=== PATIENT | male | born 1985 | race Hispanic/Latino ===

== ENCOUNTER 2018-10-25 01:05 | Emergency (ER) | payer OTHER ==
[2018-10-25] MEDS ORDERED: KETOROLAC 30 MG/ML INJ ONE (02:05)
--- NOTE | 2018-10-25 02:30 | ER ---
Nurse's Notes [facility] Name: German Benjamin Age: 33 yrs Sex: Male : 1985 Arrival Date: 10/25/2018 Time: 01:07 Bed 15 Private MD: Reinier Martel Diagnosis: Muscle spasm Presentation: 10/25 02:06 Presenting complaint: Patient states: He started having numbness of the right arm, that ea has come and gone for several days. Reports he has been seen for it before. Transition of care: patient was not received from another setting of care. Onset of symptoms was October 25, 2018. Risk Assessment: Do you want to hurt yourself or someone else? Patient reports no desire to harm self or others. Initial Sepsis Screen: Does the patient meet any 2 criteria? No. Patient's initial sepsis screen is negative. Does the patient have a suspected source of infection? No. Patient's initial sepsis screen is negative. Care prior to arrival: None. 02:06 Method Of Arrival: Ambulatory ea 02:06 Acuity: ABDELRAHMAN 4 ea Triage Assessment: 02:08 General: Appears in no apparent distress. Behavior is calm, cooperative, appropriate ea for age. Pain: Denies pain. EENT: No signs and/or symptoms were reported regarding the EENT system. Neuro: Level of Consciousness is awake, alert, obeys commands, Oriented to person, place, time, situation. Cardiovascular: Heart tones S1 S2 present Patient's skin is warm and dry. Respiratory: Airway is patent Respiratory effort is even, unlabored, Respiratory pattern is regular, symmetrical, Breath sounds are clear bilaterally. GI: Abdomen is non-distended. Derm: Skin is pink, warm \T\ dry. Historical: - Allergies: 02:08 No Known Allergies; ea - Home Meds: 02:08 Naproxen Oral [Active]; ea - PMHx: 02:08 Hypertension; ea - PSHx: 02:08 left knee surgery; ea - Immunization history:: Adult Immunizations up to date. - Social history:: Smoking status: Patient/guardian denies using tobacco, Patient/guardian denies using alcohol, street drugs, The patient lives with family. - Ebola Screening: : No symptoms or risks identified at this time. - Family history:: not pertinent. - Hospitalizations: : No recent hospitalization is reported. Screenin:10 Abuse screen: Denies threats or abuse. Nutritional screening: No deficits noted. ea Tuberculosis screening: No symptoms or risk factors identified. Fall Risk None identified. Assessment: 02:45 Reassessment: Patient and/or family updated on plan of care and expected duration. Pain ea level reassessed. Patient is alert, oriented x 3, equal unlabored respirations, skin warm/dry/pink. Discharge instructions given to patient, verbalized the understanding of instructions Patient states feeling better. Patient states symptoms have improved. Vital Signs: 02:09 BP 150 / 87; Pulse 66; Resp 17; Temp 98.2; Pulse Ox 97% on R/A; Weight 118.84 kg; ea Height 5 ft. 11 in. (180.34 cm); 02:40 BP 128 / 70; Pulse 60; Resp 18; Pulse Ox 98% ; ea 02:09 Body Mass Index 36.54 (118.84 kg, 180.34 cm) ea ED Course: 01:07 Patient arrived in ED. am2 01:07 Reinier Martel MD is Private Physician. am2 01:44 Zoe Wolfe MD is Attending Physician. ma2 01:55 Kaur Rivera RN is Primary Nurse. ea 02:07 Triage completed. ea 02:10 Arm band placed on right wrist. Patient placed in an exam room, on a stretcher, on ea pulse oximetry. 02:11 Patient has correct armband on for positive identification. Bed in low position. Call ea light in reach. Side rails up X2. 02:46 No provider procedures requiring assistance completed. IV discontinued, intact, ea bleeding controlled, No redness/swelling at site. Pressure dressing applied. Administered Medications: 02:06 Drug: TORadol 60 mg Route: IM; Site: right gluteus; ea 02:40 Follow up: Response: No adverse reaction ea Outcome: 02:30 Discharge ordered by . ma2 02:46 Discharged to home ambulatory, with significant other. ea 02:46 Condition: improved 02:46 Instructed on discharge instructions, follow up and referral plans. medication usage, Demonstrated understanding of instructions, follow-up care, medications, Prescriptions given X 2. 02:47 Patient left the ED. ea Signatures: Karen Alejandre am2 Rivera, Kaur, RN RN ea Alzahri, Mohammad, MD MD ma2 Corrections: (The following items were deleted from the chart) 02:47 02:46 BP 128 / 70; Pulse 60bpm; Resp 18bpm; Pulse Ox 98%; ea ea
--- NOTE | 2018-10-25 02:30 | EDPHYS ---
Physician Documentation [facility] Name: German Benjamin Age: 33 yrs Sex: Male : 1985 Arrival Date: 10/25/2018 Time: 01:07 Bed 15 Private MD: Reinier Martel ED Physician Zoe Wolfe HPI: 10/25 02:30 This 33 yrs old Male presents to ER via Ambulatory with complaints of Numbness ma2 Of Arm. 02:27 The patient or guardian complains of pain. The complaints affect the left bicep. Onset: ma2 The symptoms/episode began/occurred suddenly, 3 hour(s) ago. Associated signs and symptoms: Pertinent negatives: decreased range of motion, erythema, fever, nausea. Severity of symptoms: At their worst the symptoms were moderate, in the emergency department the symptoms are unchanged. The patient has experienced similar episodes in the past. 02:27 Modifying factors: The symptoms are alleviated by nothing. the symptoms are aggravated ma2 by movement. Historical: - Allergies: 02:08 No Known Allergies; ea - Home Meds: 02:08 Naproxen Oral [Active]; ea - PMHx: 02:08 Hypertension; ea - PSHx: 02:08 left knee surgery; ea - Immunization history:: Adult Immunizations up to date. - Social history:: Smoking status: Patient/guardian denies using tobacco, Patient/guardian denies using alcohol, street drugs, The patient lives with family. - Ebola Screening: : No symptoms or risks identified at this time. - Family history:: not pertinent. - Hospitalizations: : No recent hospitalization is reported. ROS: 02:27 Constitutional: Negative for fever, chills, and weight loss, Cardiovascular: Negative ma2 for chest pain, palpitations, and edema, Respiratory: Negative for shortness of breath, cough, wheezing, and pleuritic chest pain, Abdomen/GI: Negative for abdominal pain, nausea, diarrhea, and constipation. 02:27 MS/extremity: Positive for tenderness, Negative for bite, decreased range of motion, ecchymosis, erythema, pain. 02:27 All other systems are negative. 02:27 Neuro: Negative for headache, weakness, numbness, tingling, and seizure, Psych: ma2 Negative for depression, anxiety, suicide ideation, homicidal ideation, and hallucinations, Allergy/Immunology: Negative for hives, rash, and allergies. Exam: 02:27 Constitutional: This is a well developed, well nourished patient who is awake, alert, ma2 and in no acute distress. Chest/axilla: Normal chest wall appearance and motion. Nontender with no deformity. No lesions are appreciated. Cardiovascular: Regular rate and rhythm with a normal S1 and S2. No gallops, murmurs, or rubs. Normal PMI, no JVD. No pulse deficits. Respiratory: Lungs have equal breath sounds bilaterally, clear to auscultation and percussion. No rales, rhonchi or wheezes noted. No increased work of breathing, no retractions or nasal flaring. Abdomen/GI: Soft, non-tender, with normal bowel sounds. No distension or tympany. No guarding or rebound. No evidence of tenderness throughout. 02:27 Musculoskeletal/extremity: Extremities: noted in the left arm: pain, tenderness, Circulation is intact in all extremities. Vital Signs: 02:09 BP 150 / 87; Pulse 66; Resp 17; Temp 98.2; Pulse Ox 97% on R/A; Weight 118.84 kg; ea Height 5 ft. 11 in. (180.34 cm); 02:40 BP 128 / 70; Pulse 60; Resp 18; Pulse Ox 98% ; ea 02:09 Body Mass Index 36.54 (118.84 kg, 180.34 cm) ea MDM: 01:45 Patient medically screened. ma2 02:27 Differential diagnosis: contusion, abrasion, tendonitis. Data reviewed: vital signs, sc2 nurses notes. Counseling: I had a detailed discussion with the patient and/or guardian regarding: the historical points, exam findings, and any diagnostic results supporting the discharge/admit diagnosis, the presence of at least one elevated blood pressure reading (>120/80) during this emergency department visit, the need for outpatient follow up. Medical screen evaluation completed. EMTALA emergency medical condition absent. Response to treatment: the patient's symptoms have resolved after treatment. Administered Medications: 02:06 Drug: TORadol 60 mg Route: IM; Site: right gluteus; ea 02:40 Follow up: Response: No adverse reaction ea Disposition: 10/25/18 02:30 Discharged to Home. Impression: Muscle spasm. - Condition is Stable. - Prescriptions for Tylenol- Codeine #3 300-30 mg Oral Tablet - take 2 tablet by ORAL route every 6 hours As needed; 30 tablet. Cyclobenzaprine 10 mg Oral Tablet - take 1 tablet by ORAL route every 8 hours As needed; 30 tablet. - Medication Reconciliation Form, Thank You Letter, Antibiotic Education, Prescription Opioid Use form. - Follow up: Private Physician; When: Tomorrow; Reason: Continuance of care. Signatures: Kaur Rivera RN RN ea Alzahri, Mohammad, MD MD ma2 Corrections: (The following items were deleted from the chart) 02:35 02:30 10/25/2018 02:30 Discharged to Home. Impression: [place] hemorrhagic fever; Muscle ma2 spasm. Condition is Stable. Forms are Medication Reconciliation Form, Thank You Letter, Antibiotic Education, Prescription Opioid Use. Follow up: Private Physician; When: Tomorrow; Reason: Continuance of care. ma2 02:47 02:35 10/25/2018 02:30 Discharged to Home. Impression: Muscle spasm. Condition is ea Stable. Prescriptions for Tylenol-Codeine #3 300-30 mg Oral Tablet - take 2 tablet by ORAL route every 6 hours As needed; 30 tablet, Cyclobenzaprine 10 mg Oral Tablet - take 1 tablet by ORAL route every 8 hours As needed; 30 tablet. and Forms are Medication Reconciliation Form, Thank You Letter, Antibiotic Education, Prescription Opioid Use. Follow up: Private Physician; When: Tomorrow; Reason: Continuance of care. ma2
== END 2018-10-25 02:47 | disposition home or self-care (01) ==
LOC: ER 01:05
DX: M62.838 Other muscle spasm (principal)
CPT/HCPCS: 96372; 99283

== ENCOUNTER 2019-01-26 01:44 | Emergency (ER) | payer OTHER ==
[2019-01-26 02:51] LABS: Urine Blood 1+ (NEG); Urine Glucose NEGATIVE (NEG); Urine Protein 1+ (NEG); Urine Specific Gravity >1.030 (1.005-1.030); Urine pH 5.5 (5.0-7.0)
[2019-01-26 03:00] LABS: Barbiturates NEGATIVE (NEGATIVE); Benzodiazepines NEGATIVE (NEGATIVE); Cocaine NEGATIVE (NEGATIVE); METHAMPHETAM NEGATIVE (NEGATIVE); Methadone NEGATIVE (NEGATIVE); Opiates NEGATIVE (NEGATIVE); Phencyclidine NEGATIVE (NEGATIVE); THC Cannibis NEGATIVE (NEGATIVE)
[2019-01-26 03:13] LABS: Absolute Lymphocytes (CBC) 1.5 K/uL (0.7-4.9); Absolute Monocytes 0.7 K/uL (0.1-1.3); Absolute Neutrophil 7.7 K/uL (1.8-8.0); Basophils % 0.5 % (0-1.3); Eosinophils % 0.2 % (0-4.4); Hematocrit 46.9 % (39.6-49.0); Lymphocytes % 15.1 % (15.3-44.8); MPV 8.9 fL (7.6-11.3); Monocytes % 6.8 % (3.3-12.3); RBC Red Blood Cell Count 5.48 M/uL (4.33-5.43)
[2019-01-26 03:14] LABS: Protime INR 1.08
[2019-01-26 03:27] LABS: ALT/SGPT 40 U/L (12-78); AST/SGOT 18 U/L (15-37); Albumin 4.6 g/dL (3.4-5.0); Alkaline Phosphatase 85 U/L (45-117); BUN Blood Urea Nitrogen 11 mg/dL (7-18); Bicarbonate 27 mmol/L (21-32); Bilirubin Direct 0.2 mg/dL (0-0.2); Bilirubin Total 0.6 mg/dL (0.2-1.0); Glucose Level 96 mg/dL (74-106); Potassium 3.5 mmol/L (3.5-5.1); Protein, Total 8.4 g/dL (6.4-8.2); Sodium Level 141 mmol/L (136-145)
--- NOTE | 2019-01-26 06:55 | EKG ---
Test Date: 2019-01-26 Test Time: 02:01:31 Electrical Line Splicer: ARLEY MEASUREMENT RESULTS: Intervals: Rate: 66 AR: 192 QRSD: 90 QT: 382 QTc: 400 [place]: P: 48 AR: 192 QRS: 22 T: 15 INTERPRETIVE STATEMENTS: Normal sinus rhythm Nonspecific ST and T wave abnormality Abnormal ECG Compared to ECG 02/19/2018 23:10:28 Sinus bradycardia no longer present Left ventricular hypertrophy no longer present ST (T wave) deviation still present Electronically Signed On 01-26-19 06:54:31 CRANE OPERATOR by Yuri Lainez
--- NOTE | 2019-01-26 08:11 | ER ---
Nurse's Notes [facility] Name: German Benjamin Age: 33 yrs Sex: Male : 1985 Arrival Date: 01/26/2019 Time: 01:45 Bed 17 Private MD: Diagnosis: Suicidal ideations Presentation: 01/26 01:49 Presenting complaint: EMS states: had an argument with his 3 hours ago. after that rr5 he started banging his head on the wall. tied shoe lace on his neck and tied in the door knob. According to patient he have done this before long time ago. Lizette MUHAMMAD on the scene. Transition of care: patient was not received from another setting of care. Onset of symptoms was January 26, 2019. Risk Assessment: Do you want to hurt yourself or someone else? Patient reports desire/thoughts of hurting themselves or someone else. Provider notified. Initial Sepsis Screen: Does the patient meet any 2 criteria? No. Patient's initial sepsis screen is negative. Does the patient have a suspected source of infection? No. Patient's initial sepsis screen is negative. Note mild redness on forehead noted. negative ramos for strangulation. Care prior to arrival: None. 01:49 Method Of Arrival: EMS: [facility] rr5 01:49 Acuity: ABDELRAHMAN 2 rr5 Historical: - Allergies: 01:58 No Known Allergies; rr5 - PMHx: 01:58 Hypertension; rr5 - PSHx: 01:58 Knee surgery; rr5 - Immunization history:: Adult Immunizations not up to date. - Social history:: Smoking status: Patient/guardian denies using tobacco, Patient/guardian denies using alcohol, street drugs. - Ebola Screening: : Patient negative for fever greater than or equal to 101.5 degrees Fahrenheit, and additional compatible Ebola Virus Disease symptoms Patient denies exposure to infectious person Patient denies travel to an Ebola-affected area in the 21 days before illness onset. Screenin:10 Abuse screen: Denies threats or abuse. Denies injuries from another. Nutritional rr5 screening: No deficits noted. Tuberculosis screening: No symptoms or risk factors identified. Fall Risk None identified. Assessment: 02:00 General: Appears in no apparent distress. comfortable, Behavior is calm, cooperative, rr5 appropriate for age, teary eyes. Pain: Complains of pain in forehead Pain does not radiate. Pain currently is 5 out of 10 on a pain scale. Quality of pain is described as aching, Pain began suddenly, Is intermittent. Neuro: Level of Consciousness is awake, alert, obeys commands, Oriented to person, place, time, situation, Appropriate for age. Cardiovascular: Capillary refill < 3 seconds Patient's skin is warm and dry. Respiratory: Airway is patent Respiratory effort is even, unlabored, Respiratory pattern is regular, symmetrical. GI: No signs and/or symptoms were reported involving the gastrointestinal system. : No signs and/or symptoms were reported regarding the genitourinary system. EENT: No signs and/or symptoms were reported regarding the EENT system. Derm: Skin temperature is warm mild redness forehead area. Musculoskeletal: Capillary refill < 3 seconds, Range of motion:. 03:14 Reassessment: Patient appears in no apparent distress at this time. Patient is alert, rr5 oriented x 3, equal unlabored respirations, skin warm/dry/pink. mental health deputy came and assess the patient. 04:13 Reassessment: Patient appears in no apparent distress at this time. Patient is alert, rr5 oriented x 3, equal unlabored respirations, skin warm/dry/pink. asleep comfortably on bed. no complaints made. 04:42 Reassessment: secretary specialist staff forwarded the information to [facility]. awaiting for rr5 response. 05:30 Reassessment: Patient appears in no apparent distress at this time. Patient is alert, rr5 oriented x 3, equal unlabored respirations, skin warm/dry/pink. no complaints made, calm, cooperative, watching TV comfortably. 06:20 Reassessment: Patient appears in no apparent distress at this time. Patient is alert, rr5 oriented x 3, equal unlabored respirations, skin warm/dry/pink. [facility] staff came and assessing the patient. 07:00 General: Appears in no apparent distress. comfortable, Behavior is calm, cooperative, hj appropriate for age. Pain: Denies pain. Neuro: Level of Consciousness is awake, alert, obeys commands, Oriented to person, place, time, situation, Appropriate for age. Cardiovascular: Capillary refill < 3 seconds Patient's skin is warm and dry. Respiratory: Airway is patent Respiratory effort is even, unlabored, Respiratory pattern is regular, symmetrical. GI: No signs and/or symptoms were reported involving the gastrointestinal system. : No signs and/or symptoms were reported regarding the genitourinary system. EENT: No signs and/or symptoms were reported regarding the EENT system. Derm: No signs and/or symptoms reported regarding the dermatologic system. Musculoskeletal: No signs and/or symptoms reported regarding the musculoskeletal system. 07:14 Reassessment: Patient is alert, oriented x 3, equal unlabored respirations, skin pc1 warm/dry/pink. Patient denies pain at this time. Reassessment: Patient appears in no apparent distress at this time. 08:16 Reassessment: gave report to Prem Hernadez. pc1 08:53 Reassessment: brother/ family member in room;. hj 10:10 Reassessment: Pt signed consent form for transfer. pc1 10:40 Reassessment: Patient and/or family updated on plan of care and expected duration. Pain hj level reassessed. Patient is alert, oriented x 3, equal unlabored respirations, skin warm/dry/pink. Psych: 02:00 Subjective: Patient's mood is sad. Objective: Patient is cooperative, Speech is normal, rr5 Affect is appropriate, Patient has mutilated themselves by banging his head on the wall and tied shoe lace on his neck then tied on a door knob. 02:00 Interventions: Removed personal items and placed in bag. Patient placed in hospital rr5 gown. Searched person for dangerous items. Urine collected and sent for urine drug test. Belonging list filled out. Suicide Risk Assessment: Sad Person Scale: Sex of patient: Male: Score 1 point. Age of patient: Score 1 point if patient 15-34. Depression: Score 1 point if signs of depression are present. Previous Attempt: Score 1 point if patient has previously attempted suicide. Substance Abuse: Score 0 point if patient does not abuse alcohol or drugs. Rational Thinking: Score 0 point if patient has rational thinking. Social Support: Score 1 point if social support is lacking and/or unavailable. Organized Plan: Score 0 if patient did not have an organized plan in place. Relationship: Score 0 point if patient has a spouse or domestic partner. Chronic Sickness: Score 0 point if patient does not have a chronic illness, debilitating, or severe disorder. TOTAL POINTS: If total points are 5-6, proposed clinical action is to strongly consider hospitalization, depending upon confidence in the follow-up arrangement. Implement suicide precautions. Safety Checks: Personal items have been removed. Door is open. sitter at bedside. Pt denies substance abuse. Commitment: Patient will be a voluntary commitment. Vital Signs: 01:50 BP 150 / 85; Pulse 89; Resp 17; Temp 98.4; Pulse Ox 99% ; Weight 116.12 kg; Height 5 rr5 ft. 11 in. (180.34 cm); 02:25 BP 127 / 78; Pulse 75; Resp 16; Pulse Ox 99% ; rr5 06:06 BP 139 / 88; Pulse 82; Resp 16; Pulse Ox 97% on R/A; mt 09:13 BP 129 / 63; Pulse 82; Resp 17; Temp 98.7; Pulse Ox 98% on R/A; Pain 0/10; mh5 01:50 Body Mass Index 35.70 (116.12 kg, 180.34 cm) rr5 ED Course: 01:45 Patient arrived in ED. ds1 01:45 Harsh Conte MD is Attending Physician. tw4 01:45 Safety checks: Items removed: yes. Door open/sign placed on door: yes. Family/friend mt present: no. Sitter present: Yes. 01:48 Khoa Solares, JANINA is Primary Nurse. rr5 01:57 Triage completed. rr5 01:58 Initial lab(s) drawn, by me, sent to lab. mt 02:00 Safety Checks: Personal items have been removed. The door is open or patient has been rr5 placed in a hallway bed/chair. Sitter present at this time. 02:00 Arm band placed on. rr5 02:00 EKG completed in triage. Results shown to MD. rr5 02:00 Safety checks: Items removed: yes. Door open/sign placed on door: yes. Family/friend mt present: no. Sitter present: Yes. 02:01 Patient has correct armband on for positive identification. Placed in gown. Bed in low rr5 position. 02:05 Valuables inventory done. Locked in safe. See valuables checklist. rr5 02:15 Safety checks: Items removed: yes. Door open/sign placed on door: yes. Family/friend mt present: no. Sitter present: Yes. 02:30 Safety checks: Items removed: yes. Door open/sign placed on door: yes. Family/friend mt present: no. Sitter present: Yes. 02:45 Safety checks: Items removed: yes. Door open/sign placed on door: yes. Family/friend mt present: no. Sitter present: Yes. 02:50 Inserted saline lock: 20 gauge in right forearm, using aseptic technique. Blood rr5 collected. 03:00 Safety checks: Items removed: yes. Door open/sign placed on door: yes. Family/friend mt present: no. Sitter present: Yes. 03:15 Safety checks: Items removed: yes. Door open/sign placed on door: yes. Family/friend mt present: no. Sitter present: Yes. 03:30 Safety checks: Items removed: yes. Door open/sign placed on door: yes. Family/friend mt present: no. Sitter present: Yes. 03:45 Safety checks: Items removed: yes. Door open/sign placed on door: yes. Family/friend mt present: no. Sitter present: Yes. 04:00 Safety checks: Items removed: yes. Door open/sign placed on door: yes. Family/friend mt present: no. Sitter present: Yes. 04:15 Safety checks: Items removed: yes. Door open/sign placed on door: yes. Family/friend mt present: no. Sitter present: Yes. 04:30 Safety checks: Items removed: yes. Door open/sign placed on door: yes. Family/friend mt present: no. Sitter present: Yes. 04:45 Safety checks: Items removed: yes. Door open/sign placed on door: yes. Family/friend mt present: no. Sitter present: Yes. 05:00 Safety checks: Items removed: yes. Door open/sign placed on door: yes. Family/friend mt present: no. Sitter present: Yes. 05:15 Safety checks: Items removed: yes. Door open/sign placed on door: yes. Family/friend mt present: no. Sitter present: Yes. 05:30 Safety checks: Items removed: yes. Door open/sign placed on door: yes. Family/friend mt present: no. Sitter present: Yes. 05:45 Safety checks: Items removed: yes. Door open/sign placed on door: yes. Family/friend mt present: no. Sitter present: Yes. 06:00 Safety checks: Items removed: yes. Door open/sign placed on door: yes. Family/friend mt present: no. Sitter present: Yes. 07:00 Safety checks: Items removed: yes. Door open/sign placed on door: yes. Family/friend mh5 present: no. Sitter present: Yes. 07:08 Attending Physician role handed off by Harsh Conte MD rn 07:08 Juan Tom MD is Attending Physician. rn 07:15 Safety checks: Items removed: yes. Door open/sign placed on door: yes. Family/friend mh5 present: no. Sitter present: Yes. Safety checks: Items removed: yes. 07:30 Safety checks: Items removed: yes. Door open/sign placed on door: yes. Family/friend mh5 present: no. Sitter present: Yes. 07:45 Safety checks: Items removed: yes. Door open/sign placed on door: yes. Family/friend mh5 present: no. Sitter present: Yes. 08:00 Safety checks: Items removed: yes. Door open/sign placed on door: yes. Family/friend mh5 present: no. Sitter present: Yes. 08:15 Safety checks: Items removed: yes. Door open/sign placed on door: yes. Family/friend mh5 present: no. Sitter present: Yes. Diet: Patient given a regular meal tray. 08:30 Safety checks: Items removed: yes. Door open/sign placed on door: yes. Family/friend mh5 present: yes. Family/friends encouraged to stay with patient. Sitter present: Yes. 08:45 Safety checks: Items removed: yes. Door open/sign placed on door: yes. Family/friend mh5 present: yes. Family/friends encouraged to stay with patient. Sitter present: Yes. 09:00 Safety checks: Items removed: yes. Door open/sign placed on door: yes. Family/friend mh5 present: yes. Family/friends encouraged to stay with patient. Sitter present: Yes. 09:15 Safety checks: Items removed: yes. Door open/sign placed on door: yes. Family/friend mh5 present: yes. Sitter present: Yes. 09:30 Safety checks: Items removed: yes. Door open/sign placed on door: yes. Family/friend mh5 present: no. Sitter present: Yes. 09:43 Safety checks: Items removed: Family/friend present: Other: PATENTS MOTHER AND BROTHER mh5 ARE IN THE ROOM VISITING WITH PATEINT. 09:45 Safety checks: Items removed: yes. Door open/sign placed on door: yes. Family/friend mh5 present: yes. Family/friends encouraged to stay with patient. Sitter present: Yes. 09:51 faxed chart to [facility], was told by Anai that they have no beds at this time.bd 10:00 Safety checks: Items removed: yes. Door open/sign placed on door: yes. Family/friend mh5 present: yes. Family/friends encouraged to stay with patient. Sitter present: Yes. 10:15 Safety checks: Items removed: yes. Door open/sign placed on door: yes. Family/friend mh5 present: yes. Family/friends encouraged to stay with patient. Sitter present: Yes. 10:30 Safety checks: Items removed: yes. Door open/sign placed on door: yes. Family/friend mh5 present: yes. Family/friends encouraged to stay with patient. Sitter present: Yes. 10:39 No provider procedures requiring assistance completed. Patient transferred, IV remains hj in place. IV discontinued, intact, bleeding controlled, No redness/swelling at site. Pressure dressing applied. 10:41 Safety checks: Items removed: yes. Door open/sign placed on door: yes. Family/friend mh5 present: yes. Family/friends encouraged to stay with patient. Other: ALL FAM LY IN ROOM TO SEE PATEIN OFF . EMS HERE TO TAKE PATEINT Sitter present: Yes. Administered Medications: No medications were administered Outcome: 08:09 ER care complete, transfer ordered by . rn 10:39 Transferred by ground EMS Transfer form completed. X-rays sent w/ patient. Note: Stephanie Hernadez 10:39 Condition: stable 10:39 Instructed on the need for transfer, Demonstrated understanding of instructions. 10:41 Patient left the ED. jade Signatures: Dayan Glass Demi ds1 Juan Tom MD MD rn Joaquin, Henry, RN RN hj Martinez, Maria 5 Beverly Silveira [place] Harsh Conte MD MD 4 Solares, Khoa, RN RN rr5 Ramirez, Aristeo pc1
--- NOTE | 2019-01-26 08:11 | EDPHYS ---
Physician Documentation [facility] Name: German Benjamin Age: 33 yrs Sex: Male : 1985 Arrival Date: 01/26/2019 Time: 01:45 Bed 17 Private MD: ED Physician Juan Tom HPI: 01/26 03:25 This 33 yrs old Male presents to ER via EMS with complaints of Suicidal tw4 Ideation. 03:25 The patient presents to the emergency department with anxiety. Onset: The tw4 symptoms/episode began/occurred today. Past psychiatric history: Prior diagnosis: no previous psychiatric diagnosis known. Severity of symptoms: At their worst the symptoms were moderate. The patient has not experienced similar symptoms in the past. 03:25 Associated signs and symptoms: Pertinent positives; anxiety, depression, suicide tw4 ideation. Historical: - Allergies: 01:58 No Known Allergies; rr5 - PMHx: 01:58 Hypertension; rr5 - PSHx: 01:58 Knee surgery; rr5 - Immunization history:: Adult Immunizations not up to date. - Social history:: Smoking status: Patient/guardian denies using tobacco, Patient/guardian denies using alcohol, street drugs. - Ebola Screening: : Patient negative for fever greater than or equal to 101.5 degrees Fahrenheit, and additional compatible Ebola Virus Disease symptoms Patient denies exposure to infectious person Patient denies travel to an Ebola-affected area in the 21 days before illness onset. ROS: 03:25 Constitutional: Negative for fever, chills, and weight loss, Eyes: Negative for injury, tw4 pain, redness, and discharge, Cardiovascular: Negative for chest pain, palpitations, and edema, Respiratory: Negative for shortness of breath, cough, wheezing, and pleuritic chest pain, Abdomen/GI: Negative for abdominal pain, nausea, vomiting, diarrhea, and constipation, Back: Negative for injury and pain, MS/Extremity: Negative for injury and deformity. 03:25 Psych: Positive for anxiety, depression. 03:25 Psych: Positive for suicide gesture, suicidal ideation. tw4 Exam: 03:25 Constitutional: This is a well developed, well nourished patient who is awake, alert, tw4 and in no acute distress. Head/Face: Normocephalic, atraumatic. Chest/axilla: Normal chest wall appearance and motion. Nontender with no deformity. No lesions are appreciated. Cardiovascular: Regular rate and rhythm with a normal S1 and S2. No gallops, murmurs, or rubs. Normal PMI, no JVD. No pulse deficits. Respiratory: Lungs have equal breath sounds bilaterally, clear to auscultation and percussion. No rales, rhonchi or wheezes noted. No increased work of breathing, no retractions or nasal flaring. Abdomen/GI: Soft, non-tender, with normal bowel sounds. No distension or tympany. No guarding or rebound. No evidence of tenderness throughout. Back: No spinal tenderness. No costovertebral tenderness. Full range of motion. MS/ Extremity: Pulses equal, no cyanosis. Neurovascular intact. Full, normal range of motion. Neuro: Awake and alert, GCS 15, oriented to person, place, time, and situation. Cranial nerves II-XII grossly intact. Motor strength 5/5 in all extremities. Sensory grossly intact. Cerebellar exam normal. Normal gait. 03:25 Psych: Behavior/mood is pleasant, anxious, depressed, Affect is flat, Oriented to person, place, time, Patient has no thoughts/intents to harm self or others. Vital Signs: 01:50 BP 150 / 85; Pulse 89; Resp 17; Temp 98.4; Pulse Ox 99% ; Weight 116.12 kg; Height 5 rr5 ft. 11 in. (180.34 cm); 02:25 BP 127 / 78; Pulse 75; Resp 16; Pulse Ox 99% ; rr5 06:06 BP 139 / 88; Pulse 82; Resp 16; Pulse Ox 97% on R/A; mt 09:13 BP 129 / 63; Pulse 82; Resp 17; Temp 98.7; Pulse Ox 98% on R/A; Pain 0/10; mh5 01:50 Body Mass Index 35.70 (116.12 kg, 180.34 cm) rr5 MDM: 02:16 Patient medically screened. tw4 07:08 ED course: Patient calm, medically stable, being evaluated by mental health.. rn 07:15 Differential diagnosis: depression, suicidal attempt/ideation. Data reviewed: vital rn signs, nurses notes, lab test result(s), and as a result, I will admit patient. Counseling: I had a detailed discussion with the patient and/or guardian regarding: the historical points, exam findings, and any diagnostic results supporting the discharge/admit diagnosis, lab results, the need to transfer to another facility, [facility] does not immediately have the required specialist. ED course: Mental health recommends transfer for psychiatric evaluation, awaiting transfer. . 01/26 01:46 Order name: Acetaminophen; Complete Time: 07:09 01/26 01:46 Order name: Basic Metabolic Panel; Complete Time: 07:09 01/26 01:46 Order name: CBC with Diff; Complete Time: 07:09 01/26 01:46 Order name: ETOH Level; Complete Time: 07:09 01/26 01:46 Order name: Hepatic Function; Complete Time: 07:09 01/26 01:46 Order name: PT-INR; Complete Time: 07:09 01/26 01:46 Order name: Ptt, Activated; Complete Time: 07:09 01/26 01:46 Order name: Salicylate; Complete Time: 07:09 01/26 01:46 Order name: Urine Drug Screen; Complete Time: 07:09 01/26 01:46 Order name: EKG; Complete Time: 01:48 01/26 01:46 Order name: EKG - Nurse/Tech; Complete Time: 02:20 01/26 02:07 Order name: Urine Dipstick--Ancillary (enter results); Complete Time: 07:09 [facility] 01/26 07:08 Order name: Diet Regular; Complete Time: 07:08 01/26 10:02 Order name: Diet Regular; Complete Time: 10:03 [facility] 01/26 01:46 Order name: IV Saline Lock; Complete Time: 02:57 01/26 01:46 Order name: Labs collected and sent; Complete Time: :58 01/26 01:46 Order name: Urine Dipstick-Ancillary (obtain specimen); Complete Time: :58 Administered Medications: No medications were administered Disposition: 01/26/19 08:09 Transfer ordered to Psych Facility. Diagnosis is Suicidal ideations. - Reason for transfer: Higher level of care. - Accepting physician is . - Condition is Stable. - Problem is new. - Symptoms have improved. Signatures: Dispatcher [employer] EDMS Juan Tom MD MD rn Manjit, Delfino, RN RN hj Dg, Harsh, MD MD tw4 Khoa Solares RN RN rr5 Corrections: (The following items were deleted from the chart) 03:26 03:25 Associated signs and symptoms: The patient has no apparent associated signs or tw4 symptoms, tw4 10:41 08:09 01/26/2019 08:09 Transfer ordered to [facility]. Diagnosis is Suicidal hj ideations. Reason for transfer: Higher level of care. Accepting physician is . Condition is Stable. Problem is new. Symptoms have improved. rn
== END 2019-01-26 10:41 ==
LOC: ER 01:44
DX: R45.851 Suicidal ideations (principal); F41.9 Anxiety disorder, unspecified; F32.9 Major depressive disorder, single episode, unspecified; I10 Essential (primary) hypertension
CPT/HCPCS: 36415; 80048; 80076; 80307; 80320; 80329; 81003; 85025; 85610; 85730; 93005; 99285

== ENCOUNTER 2025-03-16 11:22 | Emergency (ER) | payer BC, OTHER, SELFPAY ==
[2025-03-16 12:05] LABS: Absolute Lymphocytes (CBC) 1.4 K/uL (0.7-4.9); Absolute Monocytes 0.5 K/uL (0.1-1.3); Absolute Neutrophil 5.7 K/uL (1.8-8.0); Basophils % 0.6 % (0-1.3); Eosinophils % 0.5 % (0-4.4); Hematocrit 42.3 % (39.6-49.0); Hemoglobin 14.8 g/dL (13.6-17.9); Lymphocytes % 18.7 % (15.3-44.8); MCH 29.8 pg (27.0-35.0); MPV 8.9 fL (7.6-11.3); Monocytes % 6.6 % (3.3-12.3); Neutrophils % 73.6 % (41.7-73.7); Nucleated Red Blood Cells % 0.1 % (0-0); Platelets 277 thou/uL (152-406); RBC Red Blood Cell Count 4.98 M/uL (4.33-5.43); Red Cell Distribution Width 13.2 % (12.1-15.2)
[2025-03-16] MEDS ORDERED: ASPIRIN 81 MG CHEWABLE TABLET ONE (12:10)
[2025-03-16] MEDS ORDERED: MAGNES/ALUMIN/SIMET 30ML UCUP ONE (12:10)
[2025-03-16] MEDS ORDERED: LIDOCAINE VISCOUS 2% 10ML ORAL SOLN ONE (12:11)
[2025-03-16] MEDS ORDERED: FAMOTIDINE 20 MG/2 ML VIAL IV ONE (12:11)
--- NOTE | 2025-03-16 12:17 | RAD REPORT ---
EXAMINATION: ONE VIEW CHEST XR CLINICAL INDICATION: Male, 40 years old.,CHEST PAIN TECHNIQUE: Frontal chest projection is submitted. Examination is limited by patient positioning and t echnique. COMPARISON: 02/19/2018 FINDINGS: The lungs are well inflated and clear. No pneumothorax or sizable effusion. The heart is normal in s ize. Mediastinal contours are unremarkable. IMPRESSION: No acute intrathoracic abnormalities.
[2025-03-16 12:25] LABS: Albumin 3.8 g/dL (3.4-5.0); Anion Gap 8.6 mEq/L (5.0-15.0); Bilirubin Direct 0.2 mg/dL (0-0.2); Bilirubin Indirect, Calculated 0.3 mg/dL (0.2-0.8); Bilirubin Total 0.5 mg/dL (0.2-1.0); Globulin 3.9 g/dL (2.3-3.5); Magnesium 2.1 mg/dL (1.6-2.4); Potassium 3.6 mEq/L (3.5-5.1); Protein, Total 7.7 g/dL (6.4-8.2); Troponin High Sensitivity 4.6 pg/mL (<58.9)
--- NOTE | 2025-03-16 13:17 | EDPHYS ---
Physician Documentation [facility] Name: German Benjamin Age: 40 yrs Sex: Male : 1985 Arrival Date: 03/16/2025 Time: 11:22 Bed 2 Private MD: ED Physician Payam Turner HPI: 03/16 11:28 Patient is a 40-year-old with no significant prior medical history just a remote [facility] history of knee surgery here with chest pain. Chest pain began 3 to 4 hours ago substernal to right-sided into his throat, sharp and dull ache. Nonexertional no sweating no radiation, feels mild shortness of breath at times. Other than that pain is mild to moderate no change in character otherwise. No prior restratification, review of system otherwise negative otherwise.. Historical: - Allergies: : No Known Allergies; db - Home Meds: : None [Active]; db - PMHx: 11:28 Hypertension; db - PSHx: 11:28 KNEE SURGERY (Hypertension); db - Immunization history:: Adult Immunizations unknown. - Infectious Disease History:: Denies. - Social history:: Smoking status: Patient denies any tobacco usage or history of. Exam: 11:28 Constitutional: This is a well developed, well nourished patient who is awake, alert, jr11 and in no acute distress. Head/Face: Normocephalic, atraumatic. Eyes: Extra-ocular motions intact. Lids and lashes normal. Conjunctiva and sclera are non-icteric and not injected. Cornea within normal limits. Periorbital areas with no swelling, redness, or edema. ENT: Nares patent. No nasal discharge, no septal abnormalities noted. Oropharynx with no redness, swelling, or masses, exudates, or evidence of obstruction, uvula midline. Mucous membranes moist. Neck: Trachea midline, no thyromegaly or masses palpated, and no cervical lymphadenopathy. Supple, full range of motion without nuchal rigidity, or vertebral point tenderness. No Meningismus. Chest/axilla: Normal chest wall appearance and motion. Nontender with no deformity. No lesions are appreciated. Cardiovascular: Regular rate and rhythm with a normal S1 and S2. No gallops, murmurs, or rubs. Normal PMI, no JVD. No pulse deficits. Respiratory: Lungs have equal breath sounds bilaterally, clear to auscultation and percussion. No rales, rhonchi or wheezes noted. No increased work of breathing, no retractions or nasal flaring. Abdomen/GI: Soft, non-tender, with normal bowel sounds. No distension or tympany. No guarding or rebound. No evidence of tenderness throughout. Back: No spinal tenderness. No costovertebral tenderness. Full range of motion. Skin: Warm, dry with normal turgor. Normal color with no rashes, no lesions, and no evidence of cellulitis. MS/ Extremity: Pulses equal, no cyanosis. Neurovascular intact. Full, normal range of motion. Vital Signs: 11:25 BP 185 / 105; Pulse 83; Resp 16; Temp 99.7; Pulse Ox 96% ; Weight 2.72 kg; Height 2 ft. db 95 in. ; Pain 6/10; 11:41 BP 153 / 84; Pulse 73; Resp 16 S; Pulse Ox 97% on R/A; kc6 12:20 BP 143 / 78; Pulse 71; Resp 17 S; Pulse Ox 97% on R/A; kc6 13:55 BP 148 / 79; Pulse 61; Resp 16; Pulse Ox 99% ; bp 11:25 Body Mass Index 0.30 (2.72 kg, 302.26 cm) db 11:25 Pain Scale: Adult db MDM: 11:25 Medical Screening Exam initiated jr11 11:28 Differential diagnosis: acute pericarditis, anxiety, Cholelithiasis costochondritis, jr11 esophagitis, gastroesophageal reflux disease (GERD). Data reviewed: vital signs, nurses notes. 11:40 ED course: EKG interpreted by me shows normal sinus rhythm, normal axis, normal jr11 intervals, T wave inversion to flat in V5 V6 and [address] changes. EKG nondiagnostic. clinical research monitor interpreted by me shows normal sinus rhythm rate of 70. 13:16 HEART Score: History: Slightly Suspicious (0), ECG: Non specific repolarization jr11 disturbance / LBTB / PM (1), Age: < or = 45 years (0), Risk Factors: 1 or 2 risk factors (1), Troponin: < or = 1 x Normal Limit (0), Total Score = 2. ED course: Just like her to my read, no pneumonia. Heart score less than 3, to follow-up with Dr. Martel as an outpatient for stress test. 03/16 11:28 Order name: Basic Metabolic Panel; Complete Time: 13:08 03/16 11:28 Order name: CBC with Diff; Complete Time: 12:23 03/16 11:28 Order name: D-Dimer; Complete Time: 13:03/16 11:28 Order name: LFT's; Complete Time: 13:03/16 11:28 Order name: Magnesium; Complete Time: 13:03/16 11:28 Order name: NT PRO-BNP; Complete Time: 13:03/16 11:28 Order name: Troponin HS; Complete Time: :03/16 11:28 Order name: Lipase; Complete Time: 13:03/16 11:28 Order name: XRAY Chest (1 view); Complete Time: 12:23 03/16 11:28 Order name: Cardiac monitoring; Complete Time: 11:41 03/16 11:28 Order name: EKG - Nurse/Tech; Complete Time: 11:41 03/16 11:28 Order name: IV Saline Lock; Complete Time: 11:55 03/16 11:28 Order name: Labs collected and sent; Complete Time: 11:55 03/16 11:28 Order name: O2 Per Protocol; Complete Time: 11:31 03/16 11:28 Order name: O2 Sat Monitoring; Complete Time: 11:31 Administered Medications: 12:16 Drug: Famotidine IVP 20 mg IVP once; dilute with 10 mL 0.9% NaCl; give over 2 minutes bp Route: IVP; Site: right antecubital; 13:55 Follow up: Response: No adverse reaction bp 12:16 Drug: GI Cocktail without - (Maalox PO 30 ml, Lidocaine Mucous Membrane 2 % 15 bp ml) PO once Route: PO; 13:55 Follow up: Response: No adverse reaction bp 12:17 Drug: Aspirin PO Chewable Tablet 324 mg PO once; 81 mg tablets x 4 Route: PO; bp 13:56 Follow up: Response: No adverse reaction bp Disposition Summary: 03/16/25 13:17 Discharge Ordered Notes: Location: Home jr11 Condition: Stable jr11 Diagnosis - Chest pain, unspecified jr11 Discharge Instructions: - Discharge Summary Sheet jr11 - Nonspecific Chest Pain, Adult jr11 Forms: - Medication Reconciliation Form jr11 - Antibiotic Education jr11 - Prescription Opioid Use jr11 - Patient Portal Instructions jr11 - Leadership Thank You Letter jr11 Prescriptions: - Pepcid 20 mg Oral Tablet - take 1 tablet ORAL route once daily; 20 tablet; Refills: 0, Product Selection jr11 Permitted Signatures: Dispatcher [employer] EDMS Tyshawn Pacheco, RN RN Payam Hartley MD MD jr11 Lilli Palacios RN RN db Corrections: (The following items were deleted from the chart) 11: 11:28 BASIC METABOLIC PANEL+C.LAB.BRZ ordered. EDMS EDMS 11: 11:28 CBC+H.LAB.BRZ ordered. EDMS EDMS 11: 11:28 D-DIMER+COAG.LAB.BRZ ordered. EDMS EDMS 11:28 11:28 HEPATIC FUNCTION+C.LAB.BRZ ordered. EDMS EDMS 11:28 11:28 MAGNESIUM+C.LAB.BRZ ordered. EDMS EDMS 11:28 11:28 PROBNP+C.LAB.BRZ ordered. EDMS EDMS 11:28 11:28 Troponin High Sensitivity+C.LAB.BRZ ordered. EDMS EDMS 11:28 11:28 LIPASE+C.LAB.BRZ ordered. EDMS EDMS 11:28 11:28 Chest Single View+RAD.RAD.BRZ ordered. EDMS EDMS
--- NOTE | 2025-03-16 13:17 | ER ---
Nurse's Notes [facility] Name: German Benjamin Age: 40 yrs Sex: Male : 1985 Arrival Date: 03/16/2025 Time: 11:22 Bed 2 Private MD: Diagnosis: Chest pain, unspecified Presentation: 03/16 11:25 Chief complaint: Patient states: CHEST PAIN STARTED APPROXIMATELY AT 0700 TODAY AFTER db EATING [employer] BREAKFAST SANDWICH AND C4 DRINK. STATES PAIN IS ON RIGHT SIDE AND RADIATES INTO NECK. Coronavirus screen: Client denies travel out of the [place] in the last 14 days. At this time, the client does not indicate any symptoms associated with coronavirus-19. Ebola Screen: Patient negative for fever greater than or equal to 101.5 degrees Fahrenheit, and additional compatible Ebola Virus Disease symptoms Patient denies exposure to infectious person. Patient denies travel to an Ebola-affected area in the 21 days before illness onset. No symptoms or risks identified at this time. Initial Sepsis Screen: Does the patient meet any 2 criteria? No. Patient's initial sepsis screen is negative. Does the patient have a suspected source of infection? No. Patient's initial sepsis screen is negative. Risk Assessment: Do you want to hurt yourself or someone else? Patient reports no desire to harm self or others. Onset of symptoms was March 16, 2025. 11:25 Method Of Arrival: Ambulatory db 11:25 Acuity: ABDELRAHMAN 2 db Triage Assessment: 11:28 General: Appears in no apparent distress. comfortable, Behavior is calm, cooperative. db Pain: Complains of pain in chest Pain radiates to neck. Neuro: Level of Consciousness is awake, alert, obeys commands, Oriented to person, place, time, situation. Cardiovascular: Reports chest pain. Respiratory: Airway is patent Respiratory effort is even, unlabored, Respiratory pattern is regular, symmetrical. Historical: - Allergies: 11: No Known Allergies; db - Home Meds: : None [Active]; db - PMHx: 11:28 Hypertension; db - PSHx: 11:28 KNEE SURGERY (Hypertension); db - Immunization history:: Adult Immunizations unknown. - Infectious Disease History:: Denies. - Social history:: Smoking status: Patient denies any tobacco usage or history of. Screenin:20 [facility] ED Fall Risk Assessment (Adult) History of falling in the last 3 months, kc6 including since admission No falls in past 3 months (0 pts) Confusion or Disorientation No (0 pts) Intoxicated or Sedated No (0 pts) Impaired Gait No (0 pts) Mobility Assist Device Used No (0 pt) Altered Elimination No (0 pt) Score/Fall Risk Level 0 - 2 = Low Risk Oriented to surroundings, Maintained a safe environment. Abuse screen: Denies threats or abuse. Denies injuries from another. Nutritional screening: No deficits noted. Tuberculosis screening: No symptoms or risk factors identified. Assessment: 11:30 General: Behavior is calm, cooperative, appropriate for age. bp Vital Signs: 11:25 BP 185 / 105; Pulse 83; Resp 16; Temp 99.7; Pulse Ox 96% ; Weight 2.72 kg; Height 2 ft. db 95 in. ; Pain 6/10; 11:41 BP 153 / 84; Pulse 73; Resp 16 S; Pulse Ox 97% on R/A; kc6 12:20 BP 143 / 78; Pulse 71; Resp 17 S; Pulse Ox 97% on R/A; kc6 13:55 BP 148 / 79; Pulse 61; Resp 16; Pulse Ox 99% ; bp 11:25 Body Mass Index 0.30 (2.72 kg, 302.26 cm) db 11:25 Pain Scale: Adult db ED Course: 11:24 Patient arrived in ED. db 11:25 Payam Turner MD is Attending Physician. jr11 11:25 Tyshawn Pacheco, RN is Primary Nurse. bp 11:28 Triage completed. db 11:28 Arm band placed on Patient placed in an exam room. db 11:30 No provider procedures requiring assistance completed. IV discontinued, intact, bp bleeding controlled, No redness/swelling at site. Pressure dressing applied. 11:41 Patient has correct armband on for positive identification. Placed in gown. Bed in low kc6 position. Call light in reach. Side rails up X 1. Adult w/ patient. bookie on. Pulse ox on. NIBP on. Door closed. Noise minimized. Lights dimmed. Warm blanket given. Pillow given. Verbal reassurance given. 12:00 Initial lab(s) drawn, by me, sent to lab. EKG done, by ED staff, reviewed by Payam Turner MD. Inserted saline lock: 20 gauge in right antecubital area, using aseptic technique. Blood collected. Flushed with 10 mL NS. Patient maintains SpO2 saturation greater than 95% on room air. 12:15 XRAY Chest (1 view) In Process Unspecified. EDMS Administered Medications: 12:16 Drug: Famotidine IVP 20 mg IVP once; dilute with 10 mL 0.9% NaCl; give over 2 minutes bp Route: IVP; Site: right antecubital; 13:55 Follow up: Response: No adverse reaction bp 12:16 Drug: GI Cocktail without - (Maalox PO 30 ml, Lidocaine Mucous Membrane 2 % 15 bp ml) PO once Route: PO; 13:55 Follow up: Response: No adverse reaction bp 12:17 Drug: Aspirin PO Chewable Tablet 324 mg PO once; 81 mg tablets x 4 Route: PO; bp 13:56 Follow up: Response: No adverse reaction bp Medication: 11:30 VIS not applicable for this client. bp Outcome: 11:30 Discharged to home ambulatory, with family, bp 11:30 Condition: stable 11:30 Discharge instructions given to patient, Instructed on discharge instructions, follow up and referral plans. medication usage, Demonstrated understanding of instructions, follow-up care, medications, Prescriptions given X 1, 13:17 Discharge ordered by MD. mitchell 13:56 Patient left the ED. bp Signatures: Dispatcher [employer] EDMS Tyshawn Pacheco, RN RN Payam Hartley MD MD jr11 Marcie Webster RN RN kc6 Lilli Palacios RN RN db
[2025-03-16 14:13] VITALS: TEMP 99.7
[2025-03-16 14:21] VITALS: BP 148/79; O2SAT 99
== END 2025-03-16 13:56 | disposition home or self-care (01) ==
LOC: ER 11:22
DX: R07.9 Chest pain, unspecified (principal); I10 Essential (primary) hypertension
CPT/HCPCS: 36415; 71045; 80048; 80076; 83690; 83735; 83880; 84484; 85025; 85379; 93005